=== PATIENT | male | born 1965 | race Caucasian/White ===

== ENCOUNTER → 2023-12-09 12:30 | Outpatient (REF) | payer OTHER, SELFPAY | LOC: RCS 12:30 | PROVIDERS: ATTENDING PHYSICIAN Internal Medicine Cardiovascular Disease; FAMILY PHYSICIAN Internal Medicine | DX: R07.89 Other chest pain (principal) | CPT/HCPCS: 93017; 93350 ==

== ENCOUNTER 2024-04-04 14:02 | Outpatient (RCR) | payer OTHER, SELFPAY | END 2024-04-04 23:59 | disposition home or self-care (01) | LOC: RPT 14:02 | PROVIDERS: ATTENDING PHYSICIAN Specialist; FAMILY PHYSICIAN Internal Medicine | DX: M75.41 Impingement syndrome of right shoulder (principal); Z73.6 Limitation of activities due to disability | CPT/HCPCS: 97010; 97110; 97140; 97162 ==

== ENCOUNTER 2024-04-11 23:13 | Inpatient (IN) | payer OTHER, SELFPAY ==
[2024-04-11 17:37] VITALS: BP 163/95
[2024-04-11] MEDS: TORADOL 15 MG IM (17:44)
[2024-04-11] MEDS: ZOFRAN ODT (ORALLY DISINTEGRATING) 4 MG PO (17:44)
[2024-04-11 18:06] LABS: % Eosinophils 3.2 % (0-6); % Immature Granulocytes 0.3 % (0-0.5); % Lymphocytes 43.8 % (20.5-51.1); % Monocytes 9.6 % (1.7-9.3); % Neutrophils 42.1 % (42.2-75.2); Absolute Basophils 0.1 10^3/uL (0-0.2); Absolute Eosinophils 0.2 10^3/uL (0-0.7); Absolute Lymphocytes 2.7 10^3/uL (1.2-3.4); Absolute Monocytes 0.6 10^3/uL (0.1-0.6); Absolute Neutrophils 2.6 10^3/uL (1.4-6.5); Hematocrit 47.7 % (39.0-52.0); Hemoglobin 17.3 g/dL (13.0-18.0); Mean Corp Hgb Conc. 36.3 g/dL (33.0-37.0); Mean Corpuscular Hgb 32.4 pg (27.0-31.0); Mean Corpuscular Volume 89.3 fL (80.0-94.0); Mean Platelet Volume 9.3 fL (7.4-10.4); Nucleated Red Blood Cells % 0 % (-); Platelet Count 210 10^3/uL (130-400); Red Blood Cell Count 5.34 10^6/uL (4.70-6.10); Red Cell Dist. Width 13.9 % (11.5-14.5); White Blood Cell Count 6.2 10^3/uL (4.8-10.8)
[2024-04-11 18:14] LABS: Urine Albumin Trace (Neg - Trace); Urine Bilirubin Negative (Negative); Urine Character Clear (Clear); Urine Color Yellow; Urine Glucose 3+ (Negative); Urine Ketone Negative (Negative); Urine Leukocyte Negative (Negative); Urine Nitrite Negative (Negative); Urine Occult Blood 4+ (Negative); Urine Urobilinogen Negative (Neg - 1+)
[2024-04-11 18:22] LABS: Lactic Acid 2.9 mmol/L (0.7-2.0)
[2024-04-11 18:23] LABS: ALT (SGPT) 25 U/L (0-50); AST (SGOT) 32 U/L (17-59); Albumin 5.1 g/dl (3.5-5.0); Alkaline Phosphatase 97 U/L (38-126); Blood Urea Nitrogen 19 mg/dl (9-20); Calcium 9.9 mg/dl (8.4-10.2); Carbon Dioxide 21 mmol/L (22-30); Chloride 101 mmol/L (98-107); Glucose 172 mg/dl (70-99); Potassium 4.2 mmol/L (3.5-5.1); Sodium 141 mmol/L (135-145); Total Bilirubin 1.2 mg/dl (0.2-1.3); Total Protein 7.6 g/dl (6.3-8.2); eGFR > 60.00
[2024-04-11 19:00] VITALS: BP 160/99
[2024-04-11 19:06] LABS: Urine Red Blood Cell >100 /HPF (0-2); Urine Squamous Cell 0-2 /LPF (Few)
[2024-04-11 19:07] LABS: Urine Bacteria Few (Negative); Urine White Cell 0-2 /HPF (0-5)
[2024-04-11 19:10] LABS: Lipase 256 U/L (23-300)
[2024-04-11] MEDS: DILAUDID 1 MG IV ×3 (19:27→22:26)
[2024-04-11] MEDS: NSS 1000 IV (19:27)
[2024-04-11] MEDS: TORADOL 15 MG IV (19:28)
[2024-04-11] MEDS: ZOFRAN 4 MG IV ×2 (19:29→20:29)
--- NOTE | 2024-04-11 19:42 | ED.GENMED ---
History of Present Illness
General
Chief Complaint: Abdominal Pain
Source: patient and spouse
Exam Limitations: none
Time Seen by Provider: 04/11/24 19:13
Nursing documentation reviewed up to this point in time: agreed with
History of Present Illness
History of Present Illness:
58-year-old male presents with right flank and lower abdominal pain onset an hour or 2 ago reminiscent of kidney stones 15 years ago with nausea vomiting, no fever moderate severity pain
Past History
Past History
ED Past Medical History: Hypercholesterolemia and NIDDM
ED Past Surgical History: Orthopedic
Social History
Tobacco: Non-smoker
Alcohol: None
Drug: None
Personal:
Living: with family
Employment: Employed
Review of Systems
Review of Systems
All Other Systems: Not applicable
Constitutional: Denies fever or fatigue
EENT: Reports no symptoms
Respiratory: Reports no symptoms
Cardiac: Reports no symptoms
ABD/GI: Reports abdominal pain, nausea and vomiting
: Reports flank pain
Phy Exam
Physical Exam
Physical Exam:
Physical Exam
General: 58 male looks uncomfortable
Neck: No jaundice
Heart: Regular
Lungs: no acute respiratory distress. clear bilaterally
Abdomen: Tender in the right flank and right CVA
Neuro: alert and oriented. no focal neurological deficits
Skin: no rash
Psychiatric: well kept. interactive and cooperative
Extremities: no edema.
Course
Orders/Labs/Results
Orders:
Orders
04/11/24 17:42
Ketorolac [Toradol] 15 mg IM NOW STA
04/11/24 17:43
Ondansetron Orally Disint [Zofran Odt (Orally Disintegrating)] 4 mg PO NOW STA
04/11/24 17:56
Complete Blood Count/With Diff Urgent
Comprehensive Metabolic Panel Urgent
Lactic Acid Urgent
Lipase Urgent
Urinalysis Reflex To Culture Urgent
Date Specimen was Collected: 04/11/24
Time Specimen was Collected: 17:39
Urine Microscopic Reflex Cult Urgent
04/11/24 18:46
CT Abd/pel Without Iv Or Oral Urgent
Comment:
Reason For Exam: Right flank pain
0.9% Sodium Chloride 1000 ml [Nss] 1,000 ml IV BOLUS
HYDROmorphone [Dilaudid] 1 mg IV NOW STA
Ketorolac [Toradol] 15 mg IV NOW STA
04/11/24 19:19
Ondansetron Injectable [Zofran] 4 mg .ROUTE .STK-MED ONE
04/11/24 19:29
Ondansetron Injectable [Zofran] 4 mg IV NOW STA
04/11/24 20:25
HYDROmorphone [Dilaudid] 1 mg IV NOW STA
Ondansetron Injectable [Zofran] 4 mg IV NOW STA
04/11/24 20:27
HYDROmorphone [Dilaudid] 1 mg .ROUTE .STK-MED ONE
04/11/24 20:46
CefTRIAXone [Rocephin] 1,000 mg IV NOW STA
Abnormal Lab Results
04/11/24
17:56
MCH 32.4 H pg
(27.0-31.0)
Neutrophils % 42.1 L %
(42.2-75.2)
Monocytes % 9.6 H %
(1.7-9.3)
Carbon Dioxide 21 L mmol/L
(22-30)
Glucose 172 H mg/dl
(70-99)
Lactic Acid 2.9 H mmol/L
(0.7-2.0)
Albumin 5.1 H g/dl
(3.5-5.0)
Ur Occult Blood Reflex 4+ A
(Negative)
Urine RBC >100 A /HPF
(0-2)
Urine Bacteria (Reflex) Few A
(Negative)
Urine Glucose 3+ A
(Negative)
04/11/24 17:56
04/11/24 17:56
Vital Signs
Initial and Last Documented VS:
Initial Vital Signs
Temp Pulse Resp BP Pulse Ox
98.3 F 76 20 163/95 99
04/11/24 17:37 04/11/24 17:37 04/11/24 17:37 04/11/24 17:37 04/11/24 17:37
Last Documented Vital Signs
Temp Pulse Resp BP Pulse Ox
98.3 F 77 20 160/99 99
04/11/24 17:37 04/11/24 19:00 04/11/24 19:00 04/11/24 19:00 04/11/24 19:00
MDM/Problems Addressed
Differential Diagnosis Includes:
Ureteral stone muscle strain appendicitis doubt AAA
MDM/Problems Addressed:
Right flank and lower abdominal
Chronic conditions affecting care: DM
Acute Exacerbation and/or Progression of Chronic Illness: DM
*Pulse Oximetry
Patient hypoxic: no
*Critical Care Note
Total Time (30-74mins, 75-104mins- exclusive of procedures): Not Applicable
Update Note
Update Note:
Symptoms consistent with renal colic, plan to be fluids analgesics antiemetics lactate is up may be volume contracted he is also diabetic metformin
8:[address] report noted 3 mm proximal stone possible calyceal rupture, patient still with pain and pressure despite 2 doses of Dilaudid and Toradol lactic acid is up he is diabetic we will start on antibiotics and admit
ED Attending Note
-
Portions of this chart may have been created with voice recognition software.� Occasional wrong word or��sound alike� substitutions may have occurred due to the inherent limitations of voice recognition software.
Discharge Plan
Departure
Prescriptions:
No Action
aspirin 325 MG tablet
325 mg PO QPM
simvastatin 40 MG tablet
40 mg PO HS
oe-ghp-LS-Ba-Fi-wshrgep-lutein 1 EACH tablet
1 tab PO QPM
resveratrol 250 MG capsule
250 mg PO QPM
omega 0-ock-tkm-fish oil [Fish Oil] 1 EACH capsule
1 ea PO QPM
prednisone 50 MG tablet
50 mg PO DAILY 5 Days 0RF
famciclovir 500 MG tablet
500 mg PO TID Qty: 21 0RF
metformin 500 MG tablet extended release 24 hr
500 mg PO DAILY Qty: 30 0RF
prednisone 50 mg tablet
50 mg PO DAILY 4 Days Qty: 4 0RF
famotidine 20 mg tablet
20 mg PO BID 5 Days Qty: 10 0RF
cetirizine [Zyrtec] 10 mg tablet
10 mg PO BID 5 Days Qty: 10 0RF
epinephrine [EpiPen 2-Abdirahman] 0.3 mg/0.3 mL auto-injector
0.3 mg IM ONCE Qty: 2 0RF
Interventions
Interventions:
*Risk Screen - Suicide Last Done: 04/11/24 17:37
*General Assessment Last Done: 04/11/24 17:37
*Neglect/Abuse Screening Last Done: 04/11/24 17:37
DD-Stovxp-Iegcyxkesh Assessment Last Done: 04/11/24 19:29
Discharge Date and Time
Print Language: BARBADIAN
[2024-04-11] MEDS: ROCEPHIN 1000 MG IV (21:21)
--- NOTE | 2024-04-11 22:48 | HPS.HSE ---
Family Physician
-
Family Physician: Francisco J Conley
Chief Complaint
-
Right sided groin and flank pain.
History of Present Illness
This is a 58-year-old male with a past medical history significant for hypertension, hyperlipidemia and diabetes as well as a prior nephrolithiasis who presents to the emergency department with acute onset right-sided groin pain that started at
around 5 PM on day of admission.
Patient report that he had been in usual state of health and was actually working out in the gym when he suffered a shoulder injury and was being seen in the clinic in the afternoon today. Thereafter he went home and then at 5 PM he developed
right-sided groin pain. He has not noted any recent hematuria. He denies have any dysuria. He denies any fever. He does note a slight chill. He reported that about 10 years ago he had an episode of nephrolithiasis and he passed a 2 mm stone in
the emergency department. No episodes since then.
In the emergency department the patient was afebrile, hemodynamically stable. He is in distress due to pain. There is no leukocytosis hemoglobin was stable. Chemistries were normal and there is no RHONA. His lactic acid was slightly elevated at
2.9. UA was positive for hematuria. He had a CT of the abdomen pelvis which showed a 3 mm stone in the proximal right ureter ureter. There is also some question of possible right calyceal perforation
Medical History
Past Medical History
Past Medical History: Reports HTN, Hypercholesterolemia and NIDDM
Past Surgical History: Reports None
Social History
Tobacco: Non-smoker
Alcohol: None
Drug: None
Personal:
Living: With Family
Employment: Employed
Family History
Family History: Not pertinent
Allergies / Home Medications
Allergies reflects when Allergies were last updated in [employer]
Home Medications with original date entered in [employer]
Allergy/Medication List:
Allergies
Allergy/AdvReac Type Severity Reaction Status Date / Time
No Known Allergies Allergy Verified 04/11/24 17:37
Home Medications
acetaminophen 500 mg tablet (Tylenol Extra Strength) 1,000 mg PO Q6HPRN PRN mild pain 04/11/24
ascorbic acid (vitamin C) 500 mg tablet (Vitamin C) 500 mg PO DAILY 04/11/24
atorvastatin 20 mg tablet 20 mg PO QPM 04/11/24
cholecalciferol (vitamin D3) 25 mcg (1,000 unit) tablet (Vitamin D3) 25 mcg PO DAILY 04/11/24
empagliflozin 10 mg tablet (Jardiance) 10 mg PO DAILY 04/11/24
fenofibrate nanocrystallized 48 mg tablet 48 mg PO DAILY 04/11/24
magnesium oxide 400 mg (241.3 mg magnesium) tablet 400 mg PO DAILY 04/11/24
metformin 500 mg tablet 500 mg PO BID 04/11/24
quercetin 500 mg capsule 500 mg PO DAILY 04/11/24
taurine 500 mg capsule 500 mg PO DAILY 04/11/24
tirzepatide 5 mg/0.5 mL subcutaneous pen injector (Mounjaro) 5 mg SC VARMA 04/11/24
Review of Systems
-
History Source: Patient
Constitutional: Reports No Symptoms
EENT: Reports No Symptoms
Respiratory: Reports No Symptoms
Cardiac: Reports No Symptoms
Abdomen/GI: Reports No Symptoms
: Reports Flank Pain
Musculoskeletal: Reports No Symptoms
Skin: Reports No Symptoms
Neurological: Reports No Symptoms
Endocrine: Reports No Symptoms
Hematologic/Lymphatic: Reports No Symptoms
Psych: Reports No Symptoms
Physical Exam
Vital Signs
Vital Signs
Temp Pulse Resp BP Pulse Ox
98.3 F 77 20 160/99 99
04/11/24 17:37 04/11/24 19:00 04/11/24 19:00 04/11/24 19:00 04/11/24 19:00
Physical Exam
General: Well Developed, Well Nourished and Appears in Distress
HEENT: NormoCephalic, Anicteric, Moist mucous membranes and Atraumatic
Respiratory: Clear
Cardiac: S1/S2 and Regular Rhythm
Breast: Deferred by me
GI: Soft, Non Distended and Tender
Rectal: Deferred by Provider
Genito-urinary: Deferred by me
Musculoskeletal: No Clubbing, No Cyanosis and No Edema
Skin: Warm
Neuro: AO x 3
Hematologic/Lymphatic: No Lymphadenopathy
Psych: Calm
Laboratory Results
-
04/11/24 17:56
04/11/24 17:56
Laboratory Results
Lactic Acid 2.9 mmol/L (0.7-2.0) H 04/11/24 17:56
Total Bilirubin 1.2 mg/dl (0.2-1.3) 04/11/24 17:56
AST 32 U/L (17-59) 04/11/24 17:56
ALT 25 U/L (0-50) 04/11/24 17:56
Alkaline Phosphatase 97 U/L (38-126) 04/11/24 17:56
Lipase 256 U/L (23-300) 04/11/24 17:56
Data Reviewed
-
CT Scan: Report Reviewed by me
Lab Data: Labs Reviewed by me
Old Records: Reviewed
Impression/Plan
-
IMPRESSION:
PLAN:
1. Renal Colic - Right 3 mm proximal ureter stone without acute hydronephrosis. CT scan raised concern for right calyceal rupture but unclear. No RHONA. Elevated lactic acid but no signs of sepsis. Cannot rule out early infection.
- admit to med/surg
- npo after midnight
- urology aware and possibly stenting in am
- ceftriaxone for now
- pain control and antiemetics
- tamsulosin
- IV fluids
2. DM II
- hold metformin / jardiance
- insulin sliding scale for now
DVT PPX - lovenox sq
Full Code
[2024-04-11 23:47] VITALS: BMI 34.4
[2024-04-12 00:12] LABS: Glucose - Point of Care 134 mg/dl (70-99)
[2024-04-12 00:15] VITALS: BP 140/85
--- NOTE | 2024-04-12 00:17 | PTCARENOTE ---
Patient arrived on unit @2345 via stretcher, ambulate to bed with standby assist. Patient AAOx3, c/o 6/10 pain to right lower abdomen. Skin assessment completed, oriented to unit, call anderson in reach.
[2024-04-12] MEDS: NSS 1000 IV ×2 (00:23→13:54)
[2024-04-12] MEDS: FLOMAX 0.4 MG PO (02:13)
[2024-04-12] MEDS: DILAUDID 1 MG IV ×3 (03:44→18:27)
[2024-04-12] MEDS: ZOFRAN 4 MG IV (03:52)
[2024-04-12 06:13] LABS: Hematocrit 41.8 % (39.0-52.0); Mean Corp Hgb Conc. 35.9 g/dL (33.0-37.0); Mean Corpuscular Hgb 32.1 pg (27.0-31.0); Mean Corpuscular Volume 89.5 fL (80.0-94.0); Mean Platelet Volume 9.4 fL (7.4-10.4); Platelet Count 170 10^3/uL (130-400); Red Blood Cell Count 4.67 10^6/uL (4.70-6.10)
[2024-04-12 06:18] LABS: Glucose - Point of Care 108 mg/dl (70-99)
[2024-04-12 06:29] LABS: Blood Urea Nitrogen 21 mg/dl (9-20); Calcium 8.8 mg/dl (8.4-10.2); Carbon Dioxide 19 mmol/L (22-30); Chloride 106 mmol/L (98-107); Estimated Creatinine Clearance 58 ml/min; Glucose 105 mg/dl (70-99); Potassium 4.2 mmol/L (3.5-5.1); Sodium 143 mmol/L (135-145)
[2024-04-12] MEDS: TRICOR 48 MG PO (07:02)
[2024-04-12] MEDS: MAG-TAB SR 84 MG PO (07:02)
[2024-04-12 07:43] VITALS: BP 122/73
--- NOTE | 2024-04-12 10:08 | W.PN.URO.CBU ---
Today's Communication / Plan
-
CALL IF FEVER CHILS NPO AFTER MIDNIGHT
Assessment / Plan
-
NON TOXIC MIN SXS IN PT WITH FORNICEAK RUPOTURE FROM 3 MM STONE CREATININE UP 1.1 TO 1.4 JAROCHO OBSERVE AND IF FEV CHILLS OR ADVANCING CREATININE THEN CYSTO STENT BUT IOF STABLE HOME EARLY YTOMORROW IF CREATINIE NORMALIZES
Diagnosis
-
Date of Service: April 12, 2024
-
Patient Diagnosis:3 mm prox rt uretral stone with forniceal rupture RHONA
Post Op Day:
Subjective
-
ASX MILD COLIC EARLER
Objective
-
Vital Signs
Temp Pulse Resp BP Pulse Ox
98.2 F 89 16 122/73 94
04/12/24 07:43 04/12/24 07:43 04/12/24 07:43 04/12/24 07:43 04/12/24 07:43
Intake and Output
04/11/24 04/12/24 04/13/24
06:59 06:59 06:59
Intake Total 464 / 464
Output Total 300 / 300
Balance -300 / -300 464 / 464
Intake:
IV fluids (Total) 464 / 464
Output:
Urine, Voided 300 / 300
Laboratory Results
04/12/24 05:28
04/12/24 05:28
Review of Systems
-
: Flank Pain
Physical Exam
-
General - well developed, well nourished, no acute distress
Chest - clear bilaterally
Abdomen - soft, non-tender, positive bowel sounds, no CVAT, no incisional pain or distention
Genitalia - normal
Rectal - normal
Skin - warm & dry with no rash
Neuro - AOx3, no motor deficits
Extremities - no clubbing, no cyanosis, no edema
Incision - clean, dry
Dressing - clean, dry, intact
Care Review
Data Reviewed
Discussed with: Hospitalist, Nursing and Family
CT Scan: Image Pers Reviewed
--- NOTE | 2024-04-12 10:39 | W.PN.HOSP.TC ---
Today's Communication/Plan
-
see plan
Assessment / Plan
Assessment / Plan
This is a 58-year-old male with a past medical history significant for hypertension, hyperlipidemia and diabetes as well as a prior nephrolithiasis who presents to the emergency department with acute onset right-sided groin pain that started at
around 5 PM on day of admission.
CT A/P
IMPRESSION:
3 mm calculus in the proximal right ureter. Prominent periureteral linear and confluent soft tissue attenuation, which appears contiguous with the lower pole of the right kidney. Although possibly reflecting localized inflammatory changes, given the
relative absence of intrarenal collecting system distention, the possibility of lower pole calyceal perforation, or ureteral perforation may be considered. Otherwise, 1 mm nonobstructing calculus in the lower pole of the right kidney.
1. Renal Colic - Right 3 mm proximal ureter stone without acute hydronephrosis. CT scan raised concern for right calyceal rupture but unclear.
- appreciate Urology, plan is for monitoring another day with flomax with reevaluation tomorrow
- ceftriaxone for now
- pain control and antiemetics
- tamsulosin
- IV fluids
2. DM II
- hold metformin / jardiance
- insulin sliding scale for now
DVT PPX - lovenox sq
Full Code
Anticipated Discharge: 24 - 48 hours
Subjective/Interval History
-
Date of Service: April 12, 2024
mild tension headache
no longer having back/groin pain
Objective Data
-
Labs:
Laboratory Results
04/12/24
05:28
WBC 9.0
Hgb 15.0
Hct 41.8
Plt Count 170
Sodium 143
Potassium 4.2
Chloride 106
Carbon Dioxide 19 L
BUN 21 H
Creatinine 1.4 H
Glucose 105 H
Calcium 8.8
Vital Signs:
Vital Signs
Temp Pulse Resp BP Pulse Ox
98.2 F 89 16 122/73 94
04/12/24 07:43 04/12/24 07:43 04/12/24 07:43 04/12/24 07:43 04/12/24 07:43
I&O
04/11/24 04/12/24 04/13/24
06:59 06:59 06:59
Intake Total 464 / 464
Output Total 300 / 300
Balance -300 / -300 464 / 464
Review of Systems
-
History Source: Patient
All other systems: Reviewed and negative
Physical Exam
-
General: No Apparent Distress
HEENT: PERRLA
Respiratory: Clear to Auscultation; Negative Wheezes
Cardiac: Regular Rhythm and S1/S2
GI: Soft and Nontender
Musculoskeletal: No Edema
Skin: Warm and Dry; Negative Rash
Neuro: AO x 3
Psych: Calm
Data Reviewed
-
Diagnostic Radiology: Report Reviewed by me
Labs: Labs Reviewed by me
[2024-04-12] MEDS: TYLENOL 650 MG PO (11:54)
[2024-04-12 11:59] LABS: Glucose - Point of Care 118 mg/dl (70-99)
[2024-04-12] MEDS: MIRALAX 17 GRAMS PO (13:42)
[2024-04-12] MEDS: SENOKOT-S 1 TABLET PO (13:42)
[2024-04-12 15:21] VITALS: BP 142/90
--- NOTE | 2024-04-12 15:58 | CM ---
Alert awake oriented patient who lives with his Alondra who lives in a 2 story home with 2 step to enter and 13 steps to bed and bathroom. He is independent in driving and in all activities of daily living.He was offered VN he declined need.He
uses CPAP.
No VN hx / No SNF history
Pharmacy [facility]
PCP DR Cindy Garcia
PLAN Home Declined VN
[2024-04-12 17:03] LABS: Glucose - Point of Care 102 mg/dl (70-99)
[2024-04-12] MEDS: LIPITOR 20 MG PO (17:10)
[2024-04-12] MEDS: LOVENOX 40 MG SC (17:10)
[2024-04-12] MEDS: NSS 250 IV (18:28)
[2024-04-12] MEDS: STERILE WATER FOR INJECTION 10 ML IV (20:04)
[2024-04-12] MEDS: ROCEPHIN 1000 MG IV (20:04)
[2024-04-12 21:00] VITALS: PULSE 80
[2024-04-12 23:00] VITALS: BP 124/79
[2024-04-13 00:46] LABS: Glucose - Point of Care 133 mg/dl (70-99)
[2024-04-13] MEDS: NSS 1000 IV ×3 (00:50→18:48)
[2024-04-13] MEDS: TORADOL 10 MG IV ×2 (02:02→10:51)
[2024-04-13 05:41] LABS: % Basophils 0.3 % (0-2); % Eosinophils 0.7 % (0-6); % Immature Granulocytes 0.1 % (0-0.5); % Lymphocytes 12.2 % (20.5-51.1); % Monocytes 9.8 % (1.7-9.3); % Neutrophils 76.9 % (42.2-75.2); Absolute Eosinophils 0.1 10^3/uL (0-0.7); Absolute Lymphocytes 1.1 10^3/uL (1.2-3.4); Absolute Monocytes 0.9 10^3/uL (0.1-0.6); Absolute Neutrophils 6.7 10^3/uL (1.4-6.5); Hematocrit 41.5 % (39.0-52.0); Hemoglobin 14.9 g/dL (13.0-18.0); Mean Corp Hgb Conc. 35.9 g/dL (33.0-37.0); Mean Corpuscular Hgb 32.7 pg (27.0-31.0); Mean Corpuscular Volume 91.2 fL (80.0-94.0); Mean Platelet Volume 8.9 fL (7.4-10.4); Nucleated Red Blood Cells % 0 % (-); Platelet Count 138 10^3/uL (130-400); Red Blood Cell Count 4.55 10^6/uL (4.70-6.10); Red Cell Dist. Width 13.8 % (11.5-14.5); White Blood Cell Count 8.7 10^3/uL (4.8-10.8)
[2024-04-13 06:03] LABS: Blood Urea Nitrogen 19 mg/dl (9-20); Calcium 8.9 mg/dl (8.4-10.2); Carbon Dioxide 21 mmol/L (22-30); Chloride 105 mmol/L (98-107); Estimated Creatinine Clearance 58 ml/min; Glucose 119 mg/dl (70-99); Potassium 4.4 mmol/L (3.5-5.1); Sodium 138 mmol/L (135-145)
[2024-04-13 06:10] LABS: Glucose - Point of Care 127 mg/dl (70-99)
[2024-04-13] MEDS: DILAUDID 1 MG IV (06:11)
[2024-04-13] MEDS: FLOMAX 0.4 MG PO (07:10)
[2024-04-13] MEDS: MAG-TAB SR 84 MG PO (07:10)
[2024-04-13] MEDS: SENOKOT-S 1 TABLET PO (07:10)
[2024-04-13] MEDS: TRICOR 48 MG PO (07:10)
[2024-04-13 07:24] LABS: Glucose - Point of Care 139 mg/dl (70-99)
[2024-04-13 07:50] VITALS: BP 110/76
--- NOTE | 2024-04-13 08:47 | W.PN.URO.CBU ---
Today's Communication / Plan
-
may feed try oral percocet befor dilaudid hols parental narcotics unlss too much pin
Assessment / Plan
-
NON TOXIC MIN SXS IN PT WITH forniceal rupture creatinine stable x 24 hours min sxs of colic no fevr chills but 99.4 t mx discussed with p and will cx surgery today reeval in am to se f pain controlled with po rxs as took dilaudid
today monitor temp
Diagnosis
-
Date of Service: April 13, 2024
-
Patient Diagnosis:
Post Op Day:
Patient Diagnosis:3 mm prox rt uretral stone with forniceal rupture RHONA
Post Op Day:
Subjective
-
mild and pain colc no fevr chills
Objective
-
Vital Signs
Temp Pulse Resp BP Pulse Ox
99.4 F 98 16 110/76 91
04/13/24 07:50 04/13/24 07:50 04/13/24 07:50 04/13/24 07:50 04/13/24 07:50
Intake and Output
04/12/24 04/13/24 04/14/24
06:59 06:59 06:59
Intake Total 2914 / 2914
Output Total 300 / 300 1350 / 1350
Balance -300 / -300 1564 / 1564
Intake:
Oral fluids 1200 / 1200
IV fluids (Total) 1714 / 1714
Output:
Urine, Voided 300 / 300 1350 / 1350
Other:
Number of approximated MODERATE 1
amounts of urine
Laboratory Results
04/13/24 05:11
04/13/24 05:11
Physical Exam
-
General - well developed, well nourished, no acute distress
Chest - clear bilaterally
Abdomen - soft, non-tender, positive bowel sounds, no CVAT, no incisional pain or distention
Genitalia - normal
Rectal - normal
Skin - warm & dry with no rash
Neuro - AOx3, no motor deficits
Extremities - no clubbing, no cyanosis, no edema
Incision - clean, dry
Dressing - clean, dry, intact
Care Review
Data Reviewed
Discussed with: Hospitalist, Nursing and Family
CT Scan: Image Pers Reviewed
[2024-04-13] MEDS: ZOFRAN 4 MG IV (10:53)
[2024-04-13] MEDS: PERCOCET 5/325 2 TABLET PO ×3 (10:56→20:58)
[2024-04-13 11:50] LABS: Glucose - Point of Care 113 mg/dl (70-99)
--- NOTE | 2024-04-13 11:52 | W.PN.HOSP.TC ---
Today's Communication/Plan
-
see plan
Assessment / Plan
Assessment / Plan
This is a 58-year-old male with a past medical history significant for hypertension, hyperlipidemia and diabetes as well as a prior nephrolithiasis who presents to the emergency department with acute onset right-sided groin pain that started at
around 5 PM on day of admission.
CT A/P
IMPRESSION:
3 mm calculus in the proximal right ureter. Prominent periureteral linear and confluent soft tissue attenuation, which appears contiguous with the lower pole of the right kidney. Although possibly reflecting localized inflammatory changes, given the
relative absence of intrarenal collecting system distention, the possibility of lower pole calyceal perforation, or ureteral perforation may be considered. Otherwise, 1 mm nonobstructing calculus in the lower pole of the right kidney.
1. Renal Colic - Right 3 mm proximal ureter stone without acute hydronephrosis. CT scan raised concern for right calyceal rupture but unclear.
- appreciate Urology, plan is for monitoring another day with flomax with reevaluation tomorrow - NPO after MN tomorrow - discussed wtih Dr. Paige this morning
- ceftriaxone for now
- pain control and antiemetics
- tamsulosin
- IV fluids
- with bloating today will obtain obs series
2. DM II
- hold metformin / jardiance
- insulin sliding scale for now
DVT PPX - lovenox sq
Full Code
Anticipated Discharge: 24 - 48 hours
Subjective/Interval History
-
Date of Service: April 13, 2024
abdominal bloating and pain persists on right side, stretches across
last BM 2 days ago, feels constipated
Objective Data
-
Labs:
Laboratory Results
04/13/24
05:11
WBC 8.7
Hgb 14.9
Hct 41.5
Plt Count 138
Sodium 138
Potassium 4.4
Chloride 105
Carbon Dioxide 21 L
BUN 19
Creatinine 1.4 H
Glucose 119 H
Calcium 8.9
Vital Signs:
Vital Signs
Temp Pulse Resp BP Pulse Ox
98.1 F 98 16 110/76 91
04/13/24 11:11 04/13/24 07:50 04/13/24 07:50 04/13/24 07:50 04/13/24 07:50
I&O
04/12/24 04/13/24 04/14/24
06:59 06:59 06:59
Intake Total 2914 / 2914
Output Total 300 / 300 1350 / 1350
Balance -300 / -300 1564 / 1564
Review of Systems
-
History Source: Patient
All other systems: Reviewed and negative
Physical Exam
-
General: No Apparent Distress
HEENT: PERRLA
Respiratory: Clear to Auscultation; Negative Wheezes
Cardiac: Regular Rhythm and S1/S2
GI: Soft and Other (distended, no rebound or guarding)
Musculoskeletal: No Edema
Skin: Warm and Dry; Negative Rash
Neuro: AO x 3
Psych: Calm
Data Reviewed
-
Diagnostic Radiology: Report Reviewed by me
[2024-04-13 15:28] VITALS: BP 125/69
[2024-04-13] MEDS: DULCOLAX 10 MG RECTAL (15:55)
[2024-04-13] MEDS: MYLICON 80 MG PO ×2 (15:55→20:52)
[2024-04-13] MEDS: MYLICON PO (16:28)
[2024-04-13 16:49] LABS: Glucose - Point of Care 123 mg/dl (70-99)
[2024-04-13] MEDS: LIPITOR 20 MG PO (17:06)
[2024-04-13] MEDS: LOVENOX 40 MG SC (17:06)
[2024-04-13] MEDS: ROCEPHIN 1000 MG IV (20:50)
[2024-04-13] MEDS: STERILE WATER FOR INJECTION 10 ML IV (20:50)
[2024-04-13 21:09] LABS: Glucose - Point of Care 112 mg/dl (70-99)
[2024-04-13 23:00] VITALS: BP 129/74
[2024-04-14 00:57] LABS: Glucose - Point of Care 124 mg/dl (70-99)
[2024-04-14] MEDS: PERCOCET 5/325 2 TABLET PO ×2 (01:05→09:46)
[2024-04-14 06:30] LABS: Glucose - Point of Care 109 mg/dl (70-99)
[2024-04-14 07:30] LABS: Glucose - Point of Care 126 mg/dl (70-99)
[2024-04-14] MEDS: TORADOL 10 MG IV (07:39)
[2024-04-14 07:41] LABS: Hematocrit 40.3 % (39.0-52.0); Hemoglobin 14.5 g/dL (13.0-18.0); Mean Corpuscular Hgb 31.8 pg (27.0-31.0); Mean Corpuscular Volume 88.4 fL (80.0-94.0); Mean Platelet Volume 9.2 fL (7.4-10.4); Platelet Count 147 10^3/uL (130-400); Red Blood Cell Count 4.56 10^6/uL (4.70-6.10); Red Cell Dist. Width 13.5 % (11.5-14.5); White Blood Cell Count 10.6 10^3/uL (4.8-10.8)
[2024-04-14] MEDS: TRICOR 48 MG PO (07:48)
[2024-04-14] MEDS: MAG-TAB SR 84 MG PO (07:48)
[2024-04-14] MEDS: FLOMAX 0.4 MG PO (07:48)
[2024-04-14] MEDS: MYLICON 80 MG PO ×3 (07:48→21:23)
[2024-04-14 07:57] VITALS: BP 130/77
[2024-04-14 08:09] LABS: Blood Urea Nitrogen 15 mg/dl (9-20); Calcium 9.1 mg/dl (8.4-10.2); Carbon Dioxide 21 mmol/L (22-30); Chloride 101 mmol/L (98-107); Estimated Creatinine Clearance 62 ml/min; Glucose 123 mg/dl (70-99); Potassium 4.6 mmol/L (3.5-5.1); Sodium 136 mmol/L (135-145); eGFR > 60.00
--- NOTE | 2024-04-14 10:26 | W.PN.SURGUPD ---
Surgical Update
Surgical Update
Patient afebrile
No leukocytosis
Creatine appears to have peaked yesterday: 1.3 today
Passing flatus
No BM x several days
Patient c/o abdominal distension and some persistent right flank pain
---
Discussed case with Hospitalist
No role for urgent intervention
Advise an outpatient trial of stone passage
Limit narcotics
Milk of Magnesia now and twice daily until BMs become regular
--- NOTE | 2024-04-14 10:47 | W.PN.HOSP.TC ---
Today's Communication/Plan
-
would like for abdominal distention to improve prior to DC - see plan
Assessment / Plan
Assessment / Plan
This is a 58-year-old male with a past medical history significant for hypertension, hyperlipidemia and diabetes as well as a prior nephrolithiasis who presents to the emergency department with acute onset right-sided groin pain that started at
around 5 PM on day of admission.
CT A/P
IMPRESSION:
3 mm calculus in the proximal right ureter. Prominent periureteral linear and confluent soft tissue attenuation, which appears contiguous with the lower pole of the right kidney. Although possibly reflecting localized inflammatory changes, given the
relative absence of intrarenal collecting system distention, the possibility of lower pole calyceal perforation, or ureteral perforation may be considered. Otherwise, 1 mm nonobstructing calculus in the lower pole of the right kidney.
ABDOMINAL X-RAY
IMPRESSION:
Interval development of gaseous distention of the colon. No evidence of small bowel obstruction. No pneumoperitoneum.
1. Renal Colic - Right 3 mm proximal ureter stone without acute hydronephrosis. CT scan raised concern for right calyceal rupture but unclear.
- appreciate Urology
- continue flomax
- no need for OR intervention at this time
- stop antibiotics
-stop fluids
Colonic Distention
-seems to be biggest cause of discomfort now
-standing gas-x, bowel regimen, encourage ambulation, stop antibiotics and decrease opiates
-likely stop Mounjaro on DC
2. DM II
- hold metformin / jardiance
- insulin sliding scale for now
DVT PPX - lovenox sq
Full Code
Anticipated Discharge: Within 24 hours
Subjective/Interval History
-
Date of Service: April 14, 2024
lower quadrant abdominal distention
passing some gas
no vomiting
Objective Data
-
Labs:
Laboratory Results
04/14/24
07:11
WBC 10.6
Hgb 14.5
Hct 40.3
Plt Count 147
Sodium 136
Potassium 4.6
Chloride 101
Carbon Dioxide 21 L
BUN 15
Creatinine 1.3
Glucose 123 H
Calcium 9.1
Vital Signs:
Vital Signs
Temp Pulse Resp BP Pulse Ox
99.3 F 96 16 130/77 95
04/14/24 07:57 04/14/24 07:57 04/14/24 07:57 04/14/24 07:57 04/14/24 07:57
I&O
04/13/24 04/14/24 04/15/24
06:59 06:59 06:59
Intake Total 2914 / 2914 960 / 960 0 / 0
Output Total 1350 / 1350 600 / 600
Balance 1564 / 1564 360 / 360 0 / 0
Review of Systems
-
History Source: Patient
All other systems: Reviewed and negative
Physical Exam
-
General: No Apparent Distress
HEENT: PERRLA
Respiratory: Clear to Auscultation; Negative Wheezes
Cardiac: Regular Rhythm and S1/S2
GI: Soft and Other (distended, no rebound or guarding)
Musculoskeletal: No Edema
Skin: Warm and Dry; Negative Rash
Neuro: AO x 3
Psych: Calm
Data Reviewed
-
Diagnostic Radiology: Report Reviewed by me
Labs: Labs Reviewed by me
[2024-04-14] MEDS: MIRALAX 17 GRAMS PO (11:05)
[2024-04-14] MEDS: COLACE 100 MG PO ×2 (11:05→21:23)
[2024-04-14 12:05] LABS: Glucose - Point of Care 126 mg/dl (70-99)
[2024-04-14 15:26] VITALS: BP 128/73
[2024-04-14 16:31] LABS: Glucose - Point of Care 106 mg/dl (70-99)
[2024-04-14] MEDS: LOVENOX 40 MG SC (16:59)
[2024-04-14] MEDS: LIPITOR 20 MG PO (16:59)
[2024-04-14 21:18] LABS: Glucose - Point of Care 103 mg/dl (70-99)
[2024-04-14 23:00] VITALS: BP 130/86
[2024-04-15 07:00] VITALS: BP 140/89
[2024-04-15] MEDS: COLACE 100 MG PO (07:50)
[2024-04-15] MEDS: MIRALAX 17 GRAMS PO (07:50)
[2024-04-15] MEDS: TRICOR 48 MG PO (07:50)
[2024-04-15] MEDS: MAG-TAB SR 84 MG PO (07:50)
[2024-04-15] MEDS: FLOMAX 0.4 MG PO (07:50)
[2024-04-15] MEDS: MYLICON 80 MG PO (07:50)
[2024-04-15 08:35] LABS: Glucose - Point of Care 114 mg/dl (70-99)
[2024-04-15 09:02] LABS: Blood Urea Nitrogen 16 mg/dl (9-20); Calcium 9.1 mg/dl (8.4-10.2); Carbon Dioxide 23 mmol/L (22-30); Chloride 102 mmol/L (98-107); Estimated Creatinine Clearance 58 ml/min; Glucose 111 mg/dl (70-99); Potassium 4.3 mmol/L (3.5-5.1); Sodium 138 mmol/L (135-145)
--- NOTE | 2024-04-15 09:03 | W.PN.HOSP.TC ---
Today's Communication/Plan
-
enema
Assessment / Plan
Assessment / Plan
This is a 58-year-old male with a past medical history significant for hypertension, hyperlipidemia and diabetes as well as a prior nephrolithiasis who presents to the emergency department with acute onset right-sided groin pain that started at
around 5 PM on day of admission. Hospital course c/b colonic distention and discomfort.
CT A/P
IMPRESSION:
3 mm calculus in the proximal right ureter. Prominent periureteral linear and confluent soft tissue attenuation, which appears contiguous with the lower pole of the right kidney. Although possibly reflecting localized inflammatory changes, given the
relative absence of intrarenal collecting system distention, the possibility of lower pole calyceal perforation, or ureteral perforation may be considered. Otherwise, 1 mm nonobstructing calculus in the lower pole of the right kidney.
ABDOMINAL X-RAY
IMPRESSION:
Interval development of gaseous distention of the colon. No evidence of small bowel obstruction. No pneumoperitoneum.
1. Renal Colic - Right 3 mm proximal ureter stone without acute hydronephrosis. CT scan raised concern for right calyceal rupture but unclear.
- appreciate Urology
- continue flomax
- no need for OR intervention at this time
- stop antibiotics
- stop fluids
- follow up outpatient with Urology
Colonic Distention
-seems to be biggest cause of discomfort now
-standing gas-x, bowel regimen, encourage ambulation, stop antibiotics and decrease opiates
-likely stop Mounjaro on DC
-04/15: discomfort improving, has not had pain meds. will give fleet enema and advance diet. likely DC home post enema
2. DM II
- hold metformin / jardiance
- insulin sliding scale for now
DVT PPX - lovenox sq
Full Code
Anticipated Discharge: Within 24 hours
Subjective/Interval History
-
Date of Service: April 15, 2024
feeling better but still distended
passing some gas
no BM
he has not had pain meds
states he is ambulating and was doing squats but still feels very distended
Objective Data
-
Labs:
Laboratory Results
04/15/24
07:59
Sodium 138
Potassium 4.3
Chloride 102
Carbon Dioxide 23
BUN 16
Creatinine 1.4 H
Glucose 111 H
Calcium 9.1
Vital Signs:
Vital Signs
Temp Pulse Resp BP Pulse Ox
99.3 F 99 16 130/86 94
04/14/24 23:00 04/14/24 23:00 04/14/24 23:00 04/14/24 23:00 04/14/24 23:00
I&O
04/14/24 04/15/24 04/16/24
06:59 06:59 06:59
Intake Total 960 / 960 840 / 840 600 / 600
Output Total 600 / 600 850 / 850 500 / 500
Balance 360 / 360 -10 / -10 100 / 100
Review of Systems
-
History Source: Patient
All other systems: Reviewed and negative
Physical Exam
-
General: No Apparent Distress
HEENT: PERRLA
Respiratory: Clear to Auscultation
Cardiac: Regular Rhythm and S1/S2
GI: Soft and Other (ditended, no rebound or guarding )
Musculoskeletal: No Edema
Skin: Warm and Dry; Negative Rash
Neuro: AO x 3
Psych: Calm
Data Reviewed
-
Diagnostic Radiology: Report Reviewed by me
Labs: Labs Reviewed by me
[2024-04-15] MEDS: FLEET MINERAL OIL ENEMA 133 ML RECTAL (09:31)
--- NOTE | 2024-04-15 10:19 | W.PN.SURGUPD ---
Surgical Update
Surgical Update
Passing flatus, but no BM
Diminished right flank and LQ discomfort
Voiding well
---
Continue GI cathartics
Home for trial of stone passage
Discussed with Hospitalist
[2024-04-15 12:25] LABS: Glucose - Point of Care 176 mg/dl (70-99)
--- NOTE | 2024-04-15 13:33 | W.DS.TRANS ---
DC Summary - Olive Pitter
-
Discharge Instructions:
Discharge Diagnosis/Procedures nephrolithiasis, colonic distention
Diet Low Residue
Additional Diets Low residue x 2 more days then regular
Activity As tolerated
Driving Restrictions As prior to admission
Bathing Restrictions None
Instructions:
Stand-Alone Forms:
Changes to Home Medications: Yes
Discharge Medications:
DC Medications w/original date entered in [employer]
acetaminophen 500 mg tablet (Tylenol Extra Strength) 1,000 mg PO Q6HPRN PRN mild pain 04/11/24
ascorbic acid (vitamin C) 500 mg tablet (Vitamin C) 500 mg PO DAILY Supplement 04/11/24
atorvastatin 20 mg tablet 20 mg PO QPM High Cholesterol 04/11/24
cholecalciferol (vitamin D3) 25 mcg (1,000 unit) tablet (Vitamin D3) 25 mcg PO DAILY Supplement 04/11/24
empagliflozin 10 mg tablet (Jardiance) 10 mg PO DAILY Diabetes 04/11/24
fenofibrate nanocrystallized 48 mg tablet 48 mg PO DAILY High Cholesterol 04/11/24
magnesium oxide 400 mg (241.3 mg magnesium) tablet 400 mg PO DAILY Electrolyte Repletion 04/11/24
metformin 500 mg tablet 500 mg PO BID Diabetes 04/11/24
quercetin 500 mg capsule 500 mg PO DAILY Supplement 04/11/24
taurine 500 mg capsule 500 mg PO DAILY Supplement 04/11/24
tirzepatide 5 mg/0.5 mL subcutaneous pen injector (Mounjaro) 5 mg SC VARMA Diabetes 04/11/24
oxycodone-acetaminophen 5 mg-325 mg tablet 1 tab PO Q4HPRN PRN severe pain #5 tabs 04/15/24
simethicone 80 mg chewable tablet 80 mg PO TID PRN gas pain #30 tabs 04/15/24
tamsulosin 0.4 mg capsule 0.4 mg PO DAILY #30 caps 04/15/24
Home Medication Changes
Take Flomax until directed to stop by Dr. Paige
Take Percocet sparingly as needed for severe pain
Skip this week's Mounjaro dose
Pending Results: No
--- NOTE | 2024-04-15 13:33 | W.DCSUMMARY ---
Discharge Summary
Discharge Data
Date of Admission: 04/11/24
Date of Discharge: 04/15/24
-
Pending Results: No
Hospital Course
Discharging Physician : Dr. Khadijah Valentin
Disposition : Home
Primary care physician : Dr. Francisco J Conley
Principal Discharge diagnosis : Nephrolithiasis, Colonic Distention
Hospital Course :
Mr. Bunny Munoz is a 58-year-old male with a past medical history significant for hypertension, hyperlipidemia, diabetes, nephrolithiasis who presents to the emergency department with acute onset right-sided groin pain that started at around 5
PM on day of admission. Triage vitals significant for hypertension. Labs without leukocytosis. UA with 0-[address] A/P with 3mm calculus with possible lower poly calyceal perforation. He was admitted to medicine with Urology consulting. Per
urology, no indication for OR and patient can be discharged for stone passage at home. He was started on flomax.
Hospital course c/b colonic distention (seen on x-ray 04/[address] 04/11). This was patient's largest source of discomfort in 48 hour prior to discharge. He was given an enema with release of gas and feeling better prior to discharge.
Tolerated LRD. Possible that antibiotics that he was initially placed on, opiates caused distention.
Patient is discharged home with plans for follow up with PCP and Urology. He is discharged on flomax and percocet PRN, told to take sparingly.
Time spent on discharge was 35 minutes.
Important imaging findings :
CT A/P 04/11/24
IMPRESSION:
3 mm calculus in the proximal right ureter. Prominent periureteral linear and confluent soft tissue attenuation, which appears contiguous with the lower pole of the right kidney. Although possibly reflecting localized inflammatory changes, given the
relative absence of intrarenal collecting system distention, the possibility of lower pole calyceal perforation, or ureteral perforation may be considered. Otherwise, 1 mm nonobstructing calculus in the lower pole of the right kidney.
ABDOMINAL X-RAY 04/13/24
IMPRESSION:
Interval development of gaseous distention of the colon. No evidence of small bowel obstruction. No pneumoperitoneum.
Procedure findings :
Discharge Plan
-
Patient Disposition: Home (Routine Discharge)
Discharge Diagnosis/Procedures: nephrolithiasis, colonic distention
Diet: Low Residue
Additional Diets: Low residue x 2 more days then regular
Activity: As tolerated
Driving Restrictions: As prior to admission
Bathing Restrictions: None
Referrals:
Sp Paige MD [Active] - (call dr paige urology [phone] to follow up )
Francisco J Conley MD [Family Provider] - in less than 1 week
Additional Discharge Medication Instructions: Take Flomax until directed to stop by Dr. Paige
Take Percocet sparingly as needed for severe pain
Skip this week's Mounjaro dose
Prescriptions:
New
oxycodone-acetaminophen 5-325 mg Tablet
1 tab PO Q4HPRN PRN (Reason: severe pain) Qty: 5 0RF
tamsulosin 0.4 mg Capsule
0.4 mg PO DAILY Qty: 30 0RF
simethicone 80 mg Tablet,Chewable
80 mg PO TID PRN (Reason: gas pain) Qty: 30 0RF
Continued
metformin 500 mg Tablet
500 mg PO BID
atorvastatin 20 mg Tablet
20 mg PO QPM
acetaminophen [Tylenol Extra Strength] 500 mg Tablet
1,000 mg PO Q6HPRN PRN (Reason: mild pain)
magnesium oxide 400 mg (241.3 mg magnesium) Tablet
400 mg PO DAILY
ascorbic acid (vitamin C) [Vitamin C] 500 mg Tablet
500 mg PO DAILY
taurine 500 mg Capsule
500 mg PO DAILY
fenofibrate nanocrystallized 48 mg Tablet
48 mg PO DAILY
cholecalciferol (vitamin D3) [Vitamin D3] 25 mcg (1,000 unit) Tablet
25 mcg PO DAILY
Jardiance 10 mg Tablet
10 mg PO DAILY
quercetin 500 mg Capsule
500 mg PO DAILY
Held
Mounjaro 5 mg/0.5 mL Pen Injector
5 mg SC VARMA
Hold Instructions: Resume on 04/22/24.
Discharge Orders:
Discharge Patient (As Directed); Ordered 04/15/24
Ordered By: Khadijah Valentin
Discharge Date and Time
Print Language: VIET[place]ESE
[2024-04-15 13:40] VITALS: BP 139/82
== END 2024-04-15 14:30 | disposition home or self-care (01) | DRG 694 ==
LOC: 3 WEST ACU 23:13
PROVIDERS: Emergency Medicine; ADMITTING PHYSICIAN Internal Medicine; ATTENDING PHYSICIAN Student in an Organized Health Care Education/Training Program; CONSULT PHYSICIAN Specialist; EMERGENCY PHYSICIAN Emergency Medicine; FAMILY PHYSICIAN Internal Medicine
DX: N20.2 Calculus of kidney with calculus of ureter (principal); E87.20 Acidosis, unspecified; N17.9 Acute kidney failure, unspecified; I10 Essential (primary) hypertension; E11.9 Type 2 diabetes mellitus without complications; K63.89 Other specified diseases of intestine; E78.00 Pure hypercholesterolemia, unspecified; Z79.84 Long term (current) use of oral hypoglycemic drugs; Z79.899 Other long term (current) drug therapy; Z87.442 Personal history of urinary calculi
CPT/HCPCS: 74022; 74176; 80048; 80053; 81003; 81015; 82962; 83605; 83690; 83735; 85025; 85027; 94660; 96361; 96372; 96374; 96375; 96376; 99284

== ENCOUNTER 2024-05-02 14:07 | Outpatient (RCR) | payer OTHER, SELFPAY | END 2024-05-02 23:59 | disposition home or self-care (01) | LOC: RPT 14:07 | PROVIDERS: ATTENDING PHYSICIAN Specialist; FAMILY PHYSICIAN Internal Medicine | DX: M75.41 Impingement syndrome of right shoulder (principal); Z73.6 Limitation of activities due to disability; M25.511 Pain in right shoulder; M62.81 Muscle weakness (generalized) | CPT/HCPCS: 97010; 97110 ==

== ENCOUNTER 2024-05-30 11:01 | Outpatient (RCR) | payer OTHER, SELFPAY | END 2024-05-30 23:59 | disposition home or self-care (01) | LOC: RPT 11:01 | PROVIDERS: ATTENDING PHYSICIAN Specialist; FAMILY PHYSICIAN Internal Medicine | DX: M75.41 Impingement syndrome of right shoulder (principal); Z73.6 Limitation of activities due to disability | CPT/HCPCS: 97110 ==

== ENCOUNTER 2024-08-05 13:18 | Emergency (ER) | payer OTHER, SELFPAY ==
[2024-08-05 13:24] VITALS: BP 133/90
--- NOTE | 2024-08-05 15:42 | ED.MUSCINJ ---
HPI-Injury
General
Chief Complaint: Fall
Source: patient
Exam Limitations: none
Time Seen by Provider: 08/05/24 15:11
Nursing documentation reviewed up to this point in time: agreed with
History of Present Illness-Injury
Is this injury a work related problem?: No
Is pt an associate of [facility]/[place]?: No
Initial Injury comments:
Patient states he was golfing. Slid while walking down and hill and knee bent forcefully behind him. COmplains of pain to distal right femur. Incident occurre just [employer]. Brought to ED by spouse for eval.
Past History
Past History
ED Past Medical History: Hypercholesterolemia and NIDDM
ED Past Surgical History: Orthopedic
Social History
Tobacco: Non-smoker
Alcohol: None
Drug: None
Personal:
Living: with family
Employment: Employed
Review of Systems
Review of Systems
Allergies reviewed?: Yes
All Other Systems: ROS reviewed and negative except as documented in HPI and ROS
Constitutional: Reports no symptoms
Musculoskeletal: Reports joint pain (pain to distal right femur)
Skin: Reports no symptoms
Neurological: Reports no symptoms
Psychiatric: Reports no symptoms
Musculoskeletal Injury Exam
Musculoskeletal Injury Exam
Right distal femur:
Pain with Movement?: Moderate
Tender to palpation?: Moderate
Soft tissue swelling?: None
External deformity and angulation?: None
Joint effusion?: None
Contusion?: None
Hematoma-local bleeding into tissue?: None
Strain- Sprain- Tear (Connective tissue injury)?: Moderate
Crepitus with movement?: No
Joint instability?: No
Malalignment/deformity?: No
Range of motion: Full (No evidence of tendon injury)
Distal skin color and temperature: normal-warm & good color
Capillary Refill: normal
Normal distal neurovascular exam?: Yes
Phy Exam
General Physical Exam
General Presentation: well appearing and no apparent distress
General age: appears stated age
General Skin: warm and dry
General Habitus: normal
General Mental: alert
Musculoskeletal Exam
Musculoskeletal Exam: full ROM, neuro vasc intact and other (Femoral patellar tendon intact. No deformity. Full ROM to knee)
Skin Exam
Skin Exam: normal color, warm/dry and no rash
Psychiatric Exam
Psychiatric Exam: normal mood/affect
Injury Course
Orders/Labs/Results
Orders:
Orders
08/05/24 13:31
CR Knee- Right 4 Or More View* Urgent
Comment:
Reason For Exam: fall
08/05/24 15:42
Anil Wrap Right-Treatment ONCE
Knee Immobilizer Right-Treatme ONCE
*Radiology
Radiology exam reviewed: radiology read reviewed
*Pulse Oximetry
Patient hypoxic: no
*Critical Care Note
Total Time (30-74mins, 75-104mins- exclusive of procedures): Not Applicable
ED Attending Note
-
Portions of this chart may have been created with voice recognition software.� Occasional wrong word or��sound alike� substitutions may have occurred due to the inherent limitations of voice recognition software.
Discharge Plan
Departure
Patient Disposition: Home (Routine Discharge)
Date of Disposition: 08/05/24
Time of Disposition: 15:46
Patient with high blood pressure during this ER visit?: No
Condition: Good
Discharge Problem:
Knee sprain
Instructions: Preventing falls in adults, Ibuprofen, Using Cold for Pain, Knee sprain
Prescriptions:
No Action
metformin 500 mg Tablet
500 mg PO BID
atorvastatin 20 mg Tablet
20 mg PO QPM
acetaminophen [Tylenol Extra Strength] 500 mg Tablet
1,000 mg PO Q6HPRN PRN (Reason: mild pain)
magnesium oxide 400 mg (241.3 mg magnesium) Tablet
400 mg PO DAILY
ascorbic acid (vitamin C) [Vitamin C] 500 mg Tablet
500 mg PO DAILY
taurine 500 mg Capsule
500 mg PO DAILY
fenofibrate nanocrystallized 48 mg Tablet
48 mg PO DAILY
cholecalciferol (vitamin D3) [Vitamin D3] 25 mcg (1,000 unit) Tablet
25 mcg PO DAILY
Jardiance 10 mg Tablet
10 mg PO DAILY
Mounjaro 5 mg/0.5 mL Pen Injector
5 mg SC VARMA
quercetin 500 mg Capsule
500 mg PO DAILY
oxycodone-acetaminophen 5-325 mg Tablet
1 tab PO Q4HPRN PRN (Reason: severe pain) Qty: 5 0RF
tamsulosin 0.4 mg Capsule
0.4 mg PO DAILY Qty: 30 0RF
simethicone 80 mg Tablet,Chewable
80 mg PO TID PRN (Reason: gas pain) Qty: 30 0RF
Referrals:
Francisco J Conley MD [Family Provider] -
Jacky Newby MD [Active] - Call in 1-3 days for appt
Interventions
Interventions:
*Risk Screen - Suicide Last Done: 08/05/24 13:24
*General Assessment Last Done: 08/05/24 13:24
*Neglect/Abuse Screening Last Done: 08/05/24 13:24
*ED COVID-19 Vaccine History Last Done: 08/05/24 13:24
ED-Musculoskeletal Assessment Last Done: 08/05/24 15:01
ED- Neurological Assessment Last Done: 08/05/24 15:01
ED-Skin Assessment Last Done: 08/05/24 15:01
Discharge Date and Time
Print Language: ZIMBABWEAN
[2024-08-05 16:21] VITALS: BP 130/88
[2024-08-05 16:22] VITALS: BP 130/85
== END 2024-08-05 16:25 | disposition home or self-care (01) ==
LOC: EMR 13:18
PROVIDERS: EMERGENCY PHYSICIAN Emergency Medicine; FAMILY PHYSICIAN Internal Medicine
DX: S83.91XA Sprain of unspecified site of right knee, initial encounter (principal); W01.0XXA Fall on same level from slipping, tripping and stumbling without subsequent striking against object, initial encounter; E78.00 Pure hypercholesterolemia, unspecified; E11.9 Type 2 diabetes mellitus without complications
CPT/HCPCS: 99283; 73564

== ENCOUNTER 2024-08-31 06:44 | Outpatient (RCR) | payer OTHER, SELFPAY | END 2024-08-31 12:53 | disposition home or self-care (01) | LOC: RPT 06:44 | PROVIDERS: ATTENDING PHYSICIAN Student in an Organized Health Care Education/Training Program; FAMILY PHYSICIAN Internal Medicine | DX: M76.891 Other specified enthesopathies of right lower limb, excluding foot (principal); M76.31 Iliotibial band syndrome, right leg; M25.561 Pain in right knee | CPT/HCPCS: 97110; 97535 ==

== ENCOUNTER 2024-09-25 03:56 | Emergency (ER) | payer OTHER, SELFPAY ==
[2024-09-25 03:59] VITALS: BP 170/96
[2024-09-25 05:14] VITALS: BP 171/92
[2024-09-25 06:06] VITALS: BMI 35.7
--- NOTE | 2024-09-25 06:07 | ED.GENMED ---
History of Present Illness
General
Chief Complaint: Back Pain
Time Seen by Provider: 09/25/24 06:04
History of Present Illness
History of Present Illness:
TIME OF INITIAL ENCOUNTER: 6:10 AM
HPI: The patient presents with right hip pain. Of note, the patient had a fall nearly 2 months ago and at that time had knee pain and reports an unremarkable MRI and overall symptoms spontaneously improved. The right hip pain has been ongoing for
the past week and is nontraumatic. He has been taking meloxicam and also took Advil last night without relief. He had a bad night' last night related to pain. The pain radiates down into the right lower extremity toward the knee. He has had no
fevers or chills. He has been seen by Dr. Cheung in the past for his knee. The pain worsens with movement. He has no abdominal pain.
EXAM:
GENERAL: Well appearing in no distress
HEENT: Moist oral mucosa
NEUROLOGIC: Excellent strength all extremities, no obvious coordination deficits
ABDOMEN: Soft and nontender, elevated BMI
PSYCHIATRIC: Appropriate mental status, normal insight and judgement
EXTREMITIES: Nontender, no edema, moves all extremities equally, there is good active range of motion at the right hip, no pain with passive rotation of either hip, straight leg raise on the right is negative
BACK: No tenderness to the midline L-spine, no right paraspinal tenderness, some vague minimal tenderness near the PSIS on the right
SKIN: No rash, no lesions
NUMBER AND COMPLEXITY OF PROBLEMS ADDRESSED AT THE ENCOUNTER
� Chronic conditions affecting care: Hyperlipidemia, diabetes, sleep apnea
� Acute Exacerbation and/or Progression of Chronic Illness: This is an acute problem
� Differential Diagnosis includes: Sciatica, bursitis, osteoarthritis
AMOUNT AND/OR COMPLEXITY OF DATA TO BE REVIEWED AND ANALYZED
� I performed an independent evaluation of and my interpretation is:
EKG:
CT:
X-rays:
Laboratory Studies: CBC is normal, normal renal function, no blood noted in the urine (glucosuria noted)
Other:
� Review of other/old records: The patient had a CT of his abdomen pelvis last April which showed a proximal right ureteral stone and also showed multilevel discogenic/facet degenerative changes and left scoliosis
� Clinical information was obtained by an independent historian: I spoke to the at bedside
� Prescriptions/Medications Considered but not given:
� Further testing considered but not performed: No clear indication for imaging at this time. As the pain radiates down the right lower extremity, highly doubt ureteral stone therefore no CT imaging obtained.
RISK OF COMPLICATIONS AND/OR MORBIDITY OR MORTALITY OF PATIENT MANAGEMENT
� Social determinants of health affecting care: Lives at home with
� Discussion with other providers:
� Escalation of care including admission/observation vs risk of discharge considered: Symptoms are concerning for sciatica however he has a negative straight leg raise.
ANY OTHER UPDATES: Patient appears somewhat uncomfortable and has not improved with NSAIDs. Will add steroids, a shot of Toradol, and give a short course of narcotic analgesia.
6:50 AM: On reassessment, the patient appears somewhat improved.
Past History
Past History
ED Past Medical History: Hypercholesterolemia and NIDDM
ED Past Surgical History: Orthopedic
Social History
Tobacco: Non-smoker
Alcohol: None
Drug: None
Personal:
Living: with family
Employment: Employed
Phy Exam
Physical Exam
Physical Exam:
See HPI
Course
Orders/Labs/Results
Orders:
Orders
09/25/24 05:46
Complete Blood Count/With Diff Urgent
Comprehensive Metabolic Panel Urgent
Urinalysis Reflex To Culture Urgent
Date Specimen was Collected: 09/25/24
Time Specimen was Collected: 05:27
09/25/24 06:20
Ketorolac [Toradol] 30 mg IM NOW STA
Oxycodone/Acetaminophen [Percocet 5/325] 1 tablet PO NOW STA
Prednisone [Deltasone] 50 mg PO NOW STA
Abnormal Lab Results
09/25/24
05:46
MCH 31.9 H pg
(27.0-31.0)
Carbon Dioxide 20 L mmol/L
(22-30)
Glucose 112 H mg/dl
(70-99)
Total Bilirubin 1.4 H mg/dl
(0.2-1.3)
ALT 55 H U/L
(0-50)
Urine Glucose 4+ A
(Negative)
09/25/24 05:46
09/25/24 05:46
Vital Signs
Initial and Last Documented VS:
Initial Vital Signs
Temp Pulse Resp BP Pulse Ox
36.4 C 74 24 170/96 96
09/25/24 03:59 09/25/24 03:59 09/25/24 03:59 09/25/24 03:59 09/25/24 03:59
Last Documented Vital Signs
Temp Pulse Resp BP Pulse Ox
36.4 C 74 24 171/92 97
09/25/24 03:59 09/25/24 03:59 09/25/24 03:59 09/25/24 05:14 09/25/24 05:15
*Critical Care Note
Total Time (30-74mins, 75-104mins- exclusive of procedures): Not Applicable
ED Attending Note
-
Portions of this chart may have been created with voice recognition software.� Occasional wrong word or��sound alike� substitutions may have occurred due to the inherent limitations of voice recognition software.
Discharge Plan
Departure
Patient Disposition: Home (Routine Discharge)
Date of Disposition: 09/25/24
Time of Disposition: 06:51
Patient with high blood pressure during this ER visit?: Yes
Discharge Problem:
Sciatica
Instructions: Sciatica (DC), BLOOD PRESSURE, Narcotic Pain Medication
Prescriptions:
New
prednisone 50 mg tablet
50 mg PO DAILY Qty: 4 0RF
oxycodone-acetaminophen [Percocet] 5-325 mg tablet
1 - 2 tab PO Q6HPRN PRN (Reason: pain) Qty: 14 0RF
No Action
metformin 500 mg Tablet
500 mg PO BID
atorvastatin 20 mg Tablet
20 mg PO QPM
acetaminophen [Tylenol Extra Strength] 500 mg Tablet
1,000 mg PO Q6HPRN PRN (Reason: mild pain)
magnesium oxide 400 mg (241.3 mg magnesium) Tablet
400 mg PO DAILY
ascorbic acid (vitamin C) [Vitamin C] 500 mg Tablet
500 mg PO DAILY
taurine 500 mg Capsule
500 mg PO DAILY
fenofibrate nanocrystallized 48 mg Tablet
48 mg PO DAILY
cholecalciferol (vitamin D3) [Vitamin D3] 25 mcg (1,000 unit) Tablet
25 mcg PO DAILY
Jardiance 10 mg Tablet
10 mg PO DAILY
Mounjaro 5 mg/0.5 mL Pen Injector
5 mg SC VARMA
quercetin 500 mg Capsule
500 mg PO DAILY
oxycodone-acetaminophen 5-325 mg Tablet
1 tab PO Q4HPRN PRN (Reason: severe pain) Qty: 5 0RF
tamsulosin 0.4 mg Capsule
0.4 mg PO DAILY Qty: 30 0RF
simethicone 80 mg Tablet,Chewable
80 mg PO TID PRN (Reason: gas pain) Qty: 30 0RF
Referrals:
Js Cheung MD [Active] - Next open appointment
Francisco J Conley MD [Family Provider] -
Activity Restrictions/Additional Instructions:
I am giving a prescription for narcotic�use only for severe pain on an as-needed basis. If you take the narcotic, I recommend taking something like MiraLAX to prevent constipation. We can try steroids over the next several days to help decrease
inflammation/pain related to sciatica. Steroids will temporarily raise your blood sugar. I also recommend he follow-up Dr. Cheung.
Interventions
Interventions:
*Risk Screen - Suicide Last Done: 09/25/24 03:59
*Neglect/Abuse Screening Last Done: 09/25/24 03:59
QX-Ovtmpn-Ybhgqzapjc Assessment Last Done: 09/25/24 06:07
ED-Male Genitourinary Assessment Last Done: 09/25/24 06:07
ED-Musculoskeletal Assessment Last Done: 09/25/24 06:07
Discharge Date and Time
Print Language: MONTSERRAT[place]
[2024-09-25 06:25] LABS: % Basophils 0.8 % (0-2); % Eosinophils 2.6 % (0-6); % Immature Granulocytes 0.2 % (0-0.5); % Lymphocytes 33.4 % (20.5-51.1); % Monocytes 9.1 % (1.7-9.3); % Neutrophils 53.9 % (42.2-75.2); Absolute Eosinophils 0.1 10^3/uL (0-0.7); Absolute Lymphocytes 1.7 10^3/uL (1.2-3.4); Absolute Monocytes 0.5 10^3/uL (0.1-0.6); Absolute Neutrophils 2.7 10^3/uL (1.4-6.5); Hemoglobin 16.5 g/dL (13.0-18.0); Mean Corp Hgb Conc. 35.1 g/dL (33.0-37.0); Mean Corpuscular Hgb 31.9 pg (27.0-31.0); Mean Corpuscular Volume 90.9 fL (80.0-94.0); Mean Platelet Volume 9.3 fL (7.4-10.4); Nucleated Red Blood Cells % 0 % (-); Platelet Count 156 10^3/uL (130-400); Red Blood Cell Count 5.17 10^6/uL (4.70-6.10); Red Cell Dist. Width 13.5 % (11.5-14.5); White Blood Cell Count 5.1 10^3/uL (4.8-10.8)
[2024-09-25 06:27] LABS: Urine Albumin Negative (Neg - Trace); Urine Bilirubin Negative (Negative); Urine Character Clear (Clear); Urine Color Yellow; Urine Glucose 4+ (Negative); Urine Ketone Negative (Negative); Urine Leukocyte Negative (Negative); Urine Nitrite Negative (Negative); Urine Occult Blood Negative (Negative); Urine Specific Gravity 1.015 (<1.030); Urine Urobilinogen Negative (Neg - 1+)
[2024-09-25] MEDS: DELTASONE 50 MG PO (06:35)
[2024-09-25] MEDS: PERCOCET 5/325 1 TABLET PO (06:36)
[2024-09-25] MEDS: TORADOL 30 MG IM (06:36)
[2024-09-25 06:40] LABS: ALT (SGPT) 55 U/L (0-50); AST (SGOT) 47 U/L (17-59); Albumin 4.6 g/dl (3.5-5.0); Alkaline Phosphatase 71 U/L (38-126); Blood Urea Nitrogen 17 mg/dl (9-20); Calcium 9.2 mg/dl (8.4-10.2); Carbon Dioxide 20 mmol/L (22-30); Chloride 105 mmol/L (98-107); Estimated Creatinine Clearance 116 ml/min; Glucose 112 mg/dl (70-99); Potassium 4.1 mmol/L (3.5-5.1); Sodium 137 mmol/L (135-145); Total Bilirubin 1.4 mg/dl (0.2-1.3); eGFR > 60.00
== END 2024-09-25 07:11 | disposition home or self-care (01) ==
LOC: EMR 03:56
PROVIDERS: Student in an Organized Health Care Education/Training Program; EMERGENCY PHYSICIAN Emergency Medicine; FAMILY PHYSICIAN Internal Medicine
DX: M54.30 Sciatica, unspecified side (principal); R03.0 Elevated blood-pressure reading, without diagnosis of hypertension; E78.00 Pure hypercholesterolemia, unspecified; E11.9 Type 2 diabetes mellitus without complications; G47.30 Sleep apnea, unspecified
CPT/HCPCS: 99284; 96372; 80053; 81003; 85025